=== PATIENT | female | born 1955 | race Caucasian/White ===

== ENCOUNTER → 2023-08-28 06:52 | Outpatient (REF) | payer MEDICARE, OTHER, SELFPAY | LOC: DHCBC/DCA 06:52 | PROVIDERS: ATTENDING PHYSICIAN Internal Medicine Cardiovascular Disease; FAMILY PHYSICIAN Nurse Practitioner | DX: R07.89 Other chest pain (principal) | CPT/HCPCS: 78452; 93017; A9500; J2785 ==

== ENCOUNTER → 2023-08-31 12:32 | Outpatient (REF) | payer MEDICARE, OTHER, SELFPAY | LOC: HWRCS 12:32 | PROVIDERS: ATTENDING PHYSICIAN Internal Medicine Cardiovascular Disease; FAMILY PHYSICIAN Nurse Practitioner Adult Health | DX: R07.89 Other chest pain (principal) | CPT/HCPCS: 93306 ==

== ENCOUNTER → 2023-09-21 06:38 | Day surgery (SDC) | payer MEDICARE, OTHER, SELFPAY | LOC: GI 06:38 | PROVIDERS: ATTENDING PHYSICIAN Internal Medicine | DX: Z12.11 Encounter for screening for malignant neoplasm of colon (principal); D12.2 Benign neoplasm of ascending colon; D12.3 Benign neoplasm of transverse colon; D12.4 Benign neoplasm of descending colon; K63.5 Polyp of colon; K57.30 Diverticulosis of large intestine without perforation or abscess without bleeding; K64.8 Other hemorrhoids; K64.4 Residual hemorrhoidal skin tags; Z86.010 Personal history of colon polyps | CPT/HCPCS: 45385; 45380; 88305 ==

== ENCOUNTER → 2024-06-18 10:52 | Outpatient (REF) | payer MEDICARE, OTHER, SELFPAY | LOC: HWRAD 10:52 | PROVIDERS: ATTENDING PHYSICIAN Psychiatry & Neurology Neurology; FAMILY PHYSICIAN Nurse Practitioner Adult Health | DX: Z96.89 Presence of other specified functional implants (principal) | CPT/HCPCS: 72070 ==

== ENCOUNTER → 2024-06-28 11:19 | Outpatient (REF) | payer MEDICARE, OTHER, SELFPAY | LOC: PAVMRI 11:19 | PROVIDERS: ATTENDING PHYSICIAN Psychiatry & Neurology Neurology; FAMILY PHYSICIAN Nurse Practitioner Adult Health; OTHER PHYSICIAN Radiology Diagnostic Radiology | DX: H02.402 Unspecified ptosis of left eyelid (principal); I67.1 Cerebral aneurysm, nonruptured; T85.192D Other mechanical complication of implanted electronic neurostimulator of spinal cord electrode (lead), subsequent encounter | CPT/HCPCS: 70544; 70551; 72100 ==

== ENCOUNTER → 2024-07-18 08:54 | Outpatient (REF) | payer MEDICARE, OTHER, SELFPAY | LOC: RAD 08:54 | PROVIDERS: ATTENDING PHYSICIAN Psychiatry & Neurology Neurology; FAMILY PHYSICIAN Nurse Practitioner Adult Health | DX: I67.1 Cerebral aneurysm, nonruptured (principal) | CPT/HCPCS: 70496; Q9967 ==

== ENCOUNTER → 2024-11-22 12:30 | Outpatient (REF) | payer MEDICARE, OTHER, SELFPAY | LOC: HWRAD 12:30 | PROVIDERS: ATTENDING PHYSICIAN Anesthesiology; FAMILY PHYSICIAN Nurse Practitioner Adult Health | DX: M54.14 Radiculopathy, thoracic region (principal) | CPT/HCPCS: 72128 ==

== ENCOUNTER → 2025-01-21 10:46 | Outpatient (REF) | payer MEDICARE, OTHER, SELFPAY | LOC: HWRAD 10:46 | PROVIDERS: ATTENDING PHYSICIAN Nurse Practitioner Adult Health | DX: M85.89 Other specified disorders of bone density and structure, multiple sites (principal); Z12.31 Encounter for screening mammogram for malignant neoplasm of breast | CPT/HCPCS: 77063; 77067; 77080 ==

== ENCOUNTER 2025-03-12 06:30 | Outpatient (RCR) | payer MEDICARE, OTHER, SELFPAY | END 2025-03-12 23:59 | disposition home or self-care (01) | LOC: RPT 06:30 | PROVIDERS: ATTENDING PHYSICIAN Specialist; FAMILY PHYSICIAN Family Medicine | DX: I89.0 Lymphedema, not elsewhere classified (principal); Z73.6 Limitation of activities due to disability; M62.81 Muscle weakness (generalized); R26.2 Difficulty in walking, not elsewhere classified; M79.605 Pain in left leg; M79.604 Pain in right leg | CPT/HCPCS: 97163; 97530 ==